=== PATIENT | male | born 1995 | race Two or more races ===

== ENCOUNTER 2017-09-08 12:46 | Emergency (ER) | payer SELFPAY ==
[~2017-09-08] VITALS: Ht 180.3 cm; Wt 93.0 kg
[2017-09-08 12:52] VITALS: BP 130/66
[2017-09-08] MEDS ORDERED: VALP250C59 PO (12:57)
[2017-09-08] MEDS ORDERED: DIPH,PERTUSS(ACELL),TET VAC/PF 0.5 ML IM-VACC ONE ×2 (13:30→13:39)
[2017-09-08] MEDS ORDERED: BACITRACIN ZINC OINT 500U/GM, 0.9 GM ONE ×2 (13:39→13:59)
[2017-09-08] MEDS ORDERED: DIVALPROEX 500 MG TAB.ER.24H PO SCH (14:00)
== END 2017-09-08 15:59 | disposition home or self-care (01) ==
LOC: ED 15:52
DX: G40.909 Epilepsy, unspecified, not intractable, without status epilepticus (principal)
CPT/HCPCS: 90471; 90715; 93005